=== PATIENT | male | born 1985 | race Caucasian/White ===

== ENCOUNTER → 2025-05-14 09:05 | Outpatient (REF) | payer OTHER, SELFPAY | LOC: HWRAD 09:05 | PROVIDERS: ATTENDING PHYSICIAN Family Medicine | DX: K76.0 Fatty (change of) liver, not elsewhere classified (principal); R74.8 Abnormal levels of other serum enzymes; R16.1 Splenomegaly, not elsewhere classified; N20.0 Calculus of kidney; M41.9 Scoliosis, unspecified | CPT/HCPCS: 72082; 76700 ==